=== PATIENT | female | born 1950 | race Caucasian/White ===

== ENCOUNTER 2017-01-15 16:53 | Emergency (ER) | payer OTHER ==
--- NOTE | ~2017-01-15 | CR132 ---
[facility] A Service of [facility] RADIOLOGY TEXT RESULTS PATIENT: FARZAD DAVIS LOCATION: [facility] : 46 UNIT #: [id number] AGE: [address]: DIVYA SAUCEDA SEX: F ORDER DR: [id number] [facility] [address] [place], [place] [address] [id number] MR#: [id number] Acc #: [id number] NAME: FARZAD DAVIS : 1950 SEX: F STUDY DATE/TIME: 01/15/2017 15:42 UNIT: [id number] ROOM: STUDY DESCRIPTION: CR Forearm 2 View Lt Attending Physician: Divya Sauceda Aprn Ordering Physician: Divya Sauceda Aprn Primary Care Physician: Dominique Kim M.D. MEDICAL IMAGING REPORT This report is preliminary unless electronic signature is present EXAM 2 views left forearm. DATE 01/15/2017 at 15:42 HISTORY 66-year-old female with left forearm pain and deformity after falling today. COMPARISON None FINDINGS Predominantly transversely oriented impacted fracture of the distal left radial metaphysis with volar angulation and fracture apex. This fracture involvement of the posterior margin of the left radius at its articular surface. Suspected fracture of the ulnar styloid process, as well. Carpal bones appear grossly intact. Radiocarpal alignment appears maintained with respect to the main distal radial fracture fragment. Diffuse right wrist soft tissue swelling is present. The elbow joint appears intact. No retained radiopaque foreign body is seen in the soft tissues. IMPRESSION 1. Impacted interarticular fracture of the distal left radial metaphysis. Distal radial carpal alignment is maintained with respect to the distal main radial fracture fragment. 2. Suspected fracture of the ulnar styloid process. 3. Volar angulation at the fracture apex. 4. Elbow joint appears intact. Dictated by... [facility] A Service [facility] RADIOLOGY TEXT RESULTS PATIENT: FARZAD DAVIS LOCATION: [facility] : 46 UNIT #: [id number] AGE: [address]: DIVYA SAUCEDA SEX: F ORDER DR: Dotty Pearson M.D. THIS IS AN ELECTRONICALLY VERIFIED REPORT Dotty Pearson M.D. at 01/16/2017 7:34 AM [facility]/to TD: 01/15/2017 16:57 JOB #: [id number] MEDICAL IMAGING REPORT Page 1 of 1 COPY
== END 2017-01-15 17:25 | disposition home or self-care (01) ==
LOC: CFTX 16:53
DX: S52.502A Unspecified fracture of the lower end of left radius, initial encounter for closed fracture (principal); W17.89XA Other fall from one level to another, initial encounter; Y92.009 Unspecified place in unspecified non-institutional (private) residence as the place of occurrence of the external cause
CPT/HCPCS: 29125; 73090; 99283